=== PATIENT | female | born 1990 | race African-American/Black ===

== ENCOUNTER 2019-07-03 18:42 | Emergency (ER) | payer MEDICAID ==
[~2019-07-03] VITALS: Ht 167.6 cm; Wt 72.0 kg
[2019-07-03 19:53] LABS: BASOPHILS % 1.3 % (0.0-2.0); EOSINOPHILS % 2.2 % (0.0-5.0); HEMATOCRIT. 36.5 % (36.0-48.0); HEMOGLOBIN. 13.4 g/dL (12.0-16.0); LYMPHOCYTES % 34.5 % (20.0-50.0); MEAN CORPUSCULAR HEMOGLOBIN 33.5 pg (28.0-32.0); MEAN CORPUSCULAR VOLUME 91.6 fL (81.0-99.0); MEAN PLATELET VOLUME 7.4 fl (7.4-10.4); MONOCYTES % 7.1 % (2.0-8.0); NEUTROPHILS % 54.9 % (40.0-76.0); PLATELET 347 x1000/uL (130-400); RED BLOOD CELL COUNT 3.99 mill/uL (4.2-5.4); RED CELL DISTRIBUTION WIDTH 13.6 % (11.6-14.6)
[2019-07-03 20:01] LABS: CHLORIDE 105 mEq/L (98-107)
[2019-07-03 20:05] LABS: ETHANOL BLOOD 51 mg/dL
[2019-07-03 21:01] LABS: CLARITY URINE CLEAR (CLEAR); COLOR URINE YELLOW (YELLOW); KETONES URINE NEGATIVE (NEGATIVE); LEUKOCYTE ESTERASE URINE 3+ (NEGATIVE); NITRITE URINE NEGATIVE (NEGATIVE); OCCULT BLOOD URINE 3+ (NEGATIVE); PROTEIN URINE NEGATIVE (NEGATIVE); SPECIFIC GRAVITY URINE 1.003 (1.005-1.030); UROBILINOGEN URINE 0.2 E.U./dL (0.2-1.0)
[2019-07-03 21:51] LABS: *BARBITURATES SCREEN URINE NEGATIVE (NEGATIVE)
[2019-07-03 21:52] LABS: *BENZODIAZEPINES SCREEN URINE NEGATIVE (NEGATIVE); *COCAINE SCREEN URINE NEGATIVE (NEGATIVE); METHADONE URINE SCREEN NEGATIVE (NEGATIVE); OPIATES URINE SCREEN NEGATIVE (NEGATIVE)
[2019-07-03 21:53] LABS: CANNABINOID URINE SCREEN NEGATIVE (NEGATIVE)
[2019-07-03 21:55] LABS: *AMPHETAMINES SCREEN URINE PRESUMTIVE POSITIVE (NEGATIVE); PHENCYCLIDINE URINE SCREEN PRESUMTIVE POSITIVE (NEGATIVE)
[2019-07-04 10:05] VITALS: BP 124/79
== END 2019-07-04 10:05 | disposition home or self-care (01) ==
LOC: EDBD 18:42 → ER 18:42
DX: F15.129 Other stimulant abuse with intoxication, unspecified (principal); F16.129 Hallucinogen abuse with intoxication, unspecified; F10.129 Alcohol abuse with intoxication, unspecified; F31.9 Bipolar disorder, unspecified; Y90.2 Blood alcohol level of 40-59 mg/100 ml; Z59.0 Homelessness
CPT/HCPCS: 36415; 80305; 80320; 81003; 99283; G0480

== ENCOUNTER 2019-08-26 18:45 | Emergency (ER) | payer MEDICAID ==
[~2019-08-26] VITALS: Ht 162.6 cm; Wt 60.0 kg
[2019-08-26] MEDS ORDERED: ACETAMINOPHEN 325MG TABLET PO ONE (21:00)
[2019-08-26 22:33] VITALS: BP 119/79
== END 2019-08-26 22:34 | disposition home or self-care (01) ==
LOC: ER 18:45
DX: R51 Headache (principal); Y08.89XA Assault by other specified means, initial encounter; Y93.89 Activity, other specified; Y92.89 Other specified places as the place of occurrence of the external cause; Y99.8 Other external cause status
CPT/HCPCS: 81025; 99284

== ENCOUNTER 2019-09-11 12:56 | Emergency (ER) | payer MEDICAID ==
[~2019-09-11] VITALS: Ht 167.6 cm; Wt 60.0 kg
[2019-09-11] MEDS ORDERED: FOLIC ACID 1 MG, THIAMINE HCL 100 MG, MVI, ADULT NO.1 10 ML in DEXTROSE 5% WATER 1,000 ML IV ONE ×4 (14:30)
[2019-09-11 14:41] LABS: BASOPHILS % 0.4 % (0.0-2.0); CLARITY URINE CLEAR (CLEAR); COLOR URINE YELLOW (YELLOW); EOSINOPHILS % 1.6 % (0.0-5.0); HEMATOCRIT. 37.4 % (36.0-48.0); KETONES URINE NEGATIVE (NEGATIVE); LEUKOCYTE ESTERASE URINE 2+ (NEGATIVE); LYMPHOCYTES % 22.6 % (20.0-50.0); MEAN CORPUSCULAR HEMOGLOBIN 31.5 pg (28.0-32.0); MEAN CORPUSCULAR VOLUME 90.5 fL (81.0-99.0); MEAN PLATELET VOLUME 7.8 fl (7.4-10.4); MONOCYTES % 4.9 % (2.0-8.0); NEUTROPHILS % 70.5 % (40.0-76.0); NITRITE URINE NEGATIVE (NEGATIVE); OCCULT BLOOD URINE TRACE (NEGATIVE); PLATELET 345 x1000/uL (130-400); PROTEIN URINE NEGATIVE (NEGATIVE); RED BLOOD CELL COUNT 4.13 mill/uL (4.2-5.4); RED CELL DISTRIBUTION WIDTH 13.1 % (11.6-14.6); SPECIFIC GRAVITY URINE 1.005 (1.005-1.030); UROBILINOGEN URINE 0.2 E.U./dL (0.2-1.0)
[2019-09-11 14:49] LABS: CHLORIDE 107 mEq/L (98-107)
[2019-09-11 14:54] LABS: ETHANOL BLOOD 212 mg/dL
[2019-09-11 15:00] LABS: HCG SCREEN NEGATIVE; METHADONE URINE SCREEN NEGATIVE (NEGATIVE)
[2019-09-11 15:01] LABS: *BARBITURATES SCREEN URINE NEGATIVE (NEGATIVE); *BENZODIAZEPINES SCREEN URINE NEGATIVE (NEGATIVE); *COCAINE SCREEN URINE NEGATIVE (NEGATIVE); OPIATES URINE SCREEN NEGATIVE (NEGATIVE)
[2019-09-11 15:02] LABS: CANNABINOID URINE SCREEN NEGATIVE (NEGATIVE)
[2019-09-11 15:24] LABS: *AMPHETAMINES SCREEN URINE PRESUMTIVE POSITIVE (NEGATIVE); PHENCYCLIDINE URINE SCREEN PRESUMTIVE POSITIVE (NEGATIVE)
[2019-09-11] MEDS ORDERED: ONDANSETRON HCL 4MG/2ML INJ IV ONE (16:00)
[2019-09-11 17:58] VITALS: BP 132/78
== END 2019-09-11 18:50 | disposition home or self-care (01) ==
LOC: ER 13:38
DX: G93.40 Encephalopathy, unspecified (principal); F15.10 Other stimulant abuse, uncomplicated; F16.10 Hallucinogen abuse, uncomplicated; R41.82 Altered mental status, unspecified; F10.129 Alcohol abuse with intoxication, unspecified; F31.9 Bipolar disorder, unspecified; Y90.7 Blood alcohol level of 200-239 mg/100 ml
CPT/HCPCS: 36415; 70450; 80053; 80305; 80307; 80320; 80329; 81003; 81025; 84703; 85025; 96365; 96375; 99284; J3411; J3490; J7070; G0480

== ENCOUNTER 2020-02-19 19:04 | Emergency (ER) | payer MEDICAID ==
[~2020-02-19] VITALS: Ht 165.1 cm; Wt 74.0 kg
[2020-02-19] MEDS ORDERED: IBUPROFEN 600MG TABLET PO STA (19:56)
[2020-02-19] MEDS ORDERED: CYCLOBENZAPRINE 10MG TABLET PO ONE (20:00)
[2020-02-19 21:07] VITALS: BP 112/67
== END 2020-02-19 21:13 | disposition home or self-care (01) ==
LOC: ER 19:04
DX: R20.2 Paresthesia of skin (principal); M43.6 Torticollis; F15.10 Other stimulant abuse, uncomplicated
CPT/HCPCS: 29125; 29260; 99283